=== PATIENT | male | born 1985 | race Caucasian/White ===

== ENCOUNTER 2019-08-11 15:43 | Emergency (ER) | payer OTHER ==
[2019-08-11] MEDS ORDERED: Sodium Chloride 0.9% 1,000 ML ONE ×2 (15:55→17:02)
[2019-08-11 16:08] LABS: #Basophils 0.2 thou/uL (0.0-0.2); #Lymphocytes 1.4 thou/uL (1.20-3.40); #Monocytes 1.3 thou/uL (0.11-0.59); #Neutrophils 10.3 thou/uL (1.40-6.50); %Basophils 1.2 % (0.0-1.0); %Eosinophils 0.1 % (0.0-10.0); %Lymphocytes 10.8 % (21.0-51.0); %Monocytes 9.8 % (0.0-10.0); %Neutrophils 78.2 % (42.0-75.0); Hemoglobin 18.5 g/dL (14.0-18.0); Mean Corpuscular HGB CONC 32.3 g/dL (32.0-36.0); Mean Corpuscular Hemoglobin 29.3 pg (27.0-31.0); Mean Corpuscular Volume 90.8 fL (78.0-98.0); Mean Platelet Volume 8.2 fL (7.4-10.4); Platelet Count 207 thou/uL (130-400); RBC Distribution Width 12.6 % (11.5-14.5); Red Blood Cell (RBC) Count 6.32 mill/uL (4.70-6.10); White Blood Cell (WBC) Count 13.1 thou/uL (4.8-10.8)
[2019-08-11 16:15] LABS: PTT 27.1 SEC (22.9-36.1)
[2019-08-11 16:26] LABS: ALT (SGPT) 98 U/L (8-55); AST (SGOT) 43 U/L (5-34); Acetaminophen Less than 6.0 mcg/mL (10.0-30.0); Albumin 5.3 g/dL (3.5-5.0); Alcohol Less than 10 mg/dL (Less than 10); Alkaline Phosphatase 75 U/L (40-110); Anion Gap 21 mmol/L (10-20); BUN (Urea Nitrogen) 18 mg/dL (8.9-20.6); Bilirubin, Total 1.9 mg/dL (0.2-1.2); CK (CPK) 920 U/L (30-200); Calc. Creatinine Clearance 0 mL/min (70-130); Calcium 10.3 mg/dL (7.8-10.44); Carbon Dioxide 23 mmol/L (22-29); Chloride 102 mmol/L (98-107); Estimated GFR-MDRD 61; Glucose 121 mg/dL (70-105); Potassium 4.1 mmol/L (3.5-5.1); Protein, Total 8.3 g/dL (6.0-8.3); Salicylate Less than 8.0 mg/dL (15.0-30.0); Sodium 142 mmol/L (136-145)
[2019-08-11 16:46] LABS: Bilirubin Small (Negative); Blood, Urine Moderate (Negative); Clarity Slightly Cloudy (Clear); Glucose, Urine (Dipstick) Negative (Negative); Leukocyte Negative (Negative); Nitrite Negative (Negative); Protein, Urine (Dipstick) > or equal to 300 mg/dL (Neg-Trace); Urobilinogen 0.2 mg/dL (Less than 2)
[2019-08-11 16:47] LABS: Amphetamine Not Detected (NotDetected); Barbiturates Screen Not Detected (NotDetected); Benzodiazepine Screen Not Detected (NotDetected); Cocaine Metabolite Screen Not Detected (NotDetected); Medtox Control Line Valid? VALID (VALID); Methadone Not Detected (NotDetected); Methamphetamine Not Detected (NotDetected); Opiate Screen Not Detected (NotDetected); Oxycodone Screen Not Detected (NotDetected); Phencyclidine (PCP) Not Detected (NotDetected); THC/Cannabinoid Screen Not Detected (NotDetected); Tricyclic Screen Not Detected (NotDetected)
--- NOTE | 2019-08-11 16:54 | CT ---
CT BRAIN WITHOUT CONTRAST ENHANCEMENT: HISTORY: Altered mental status. FINDINGS: The ventricular and cisternal system is within normal limits. Motion artifact is present. There are n o signs of intracerebral hemorrhage or extraaxial fluid collection. The mastoid air cells are clear. There is some mucosal change in the maxillary sinuses. IMPRESSION: No acute intracranial abnormalities. POS: [facility]
--- NOTE | 2019-08-11 16:55 | RAD ---
SUPINE CHEST: HISTORY: Altered mental status. FINDINGS: Heart size appears within normal limits considering the AP supine technique. Mediastinal structures a re unremarkable. The lungs are clear of infiltrates. IMPRESSION: No active intrathoracic disease. POS: [facility]
[2019-08-11 16:57] LABS: RBC/HPF 0-3 HPF (0-3); WBC/HPF 0-3 HPF (0-3)
[2019-08-11 16:58] LABS: Bacteria/HPF 1+ HPF (None Seen)
== END 2019-08-11 17:59 | disposition short-term general hospital (02) ==
LOC: MADERS 15:43
DX: M62.82 Rhabdomyolysis (principal); R41.82 Altered mental status, unspecified; I10 Essential (primary) hypertension
CPT/HCPCS: 51702; 70450; 71045; 80053; 80306; 80307; 81003; 81015; 82550; 83605; 83880; 84443; 84484; 85025; 85610; 85730; 93005; 94760; 96360; J7050

== ENCOUNTER 2019-08-31 08:49 | Emergency (ER) | payer SELFPAY ==
[2019-08-31] MEDS ORDERED: Sodium Chloride 0.9% 1,000 ML ONE (09:54)
[2019-08-31 09:55] LABS: #Basophils 0.1 thou/uL (0.0-0.2); #Lymphocytes 1.1 thou/uL (1.20-3.40); #Monocytes 0.5 thou/uL (0.11-0.59); #Neutrophils 5.4 thou/uL (1.40-6.50); %Eosinophils 0.7 % (0.0-10.0); %Monocytes 6.7 % (0.0-10.0); %Neutrophils 76.7 % (42.0-75.0); Hemoglobin 17.8 g/dL (14.0-18.0); Mean Corpuscular HGB CONC 31.8 g/dL (32.0-36.0); Mean Corpuscular Hemoglobin 29.4 pg (27.0-31.0); Mean Corpuscular Volume 92.6 fL (78.0-98.0); Mean Platelet Volume 7.1 fL (7.4-10.4); Platelet Count 242 thou/uL (130-400); RBC Distribution Width 11.9 % (11.5-14.5); Red Blood Cell (RBC) Count 6.04 mill/uL (4.70-6.10)
--- NOTE | 2019-08-31 10:05 | RAD ---
Portable frontal chest radiograph: 08/31/2019 COMPARISON: 08/11/2019 HISTORY: Chest pain FINDINGS: Lungs are clear. Heart and mediastinal contours appear within normal limits. Inspiration is shallow. IMPRESSION: No acute findings.
[2019-08-31 10:17] LABS: ALT (SGPT) 145 U/L (8-55); AST (SGOT) 48 U/L (5-34); Alcohol Less than 10 mg/dL (Less than 10); Alkaline Phosphatase 71 U/L (40-110); Anion Gap 20 mmol/L (10-20); BUN (Urea Nitrogen) 18 mg/dL (8.9-20.6); Bilirubin, Total 1.3 mg/dL (0.2-1.2); CK (CPK) 142 U/L (30-200); Calc. Creatinine Clearance 0 mL/min (70-130); Calcium 9.8 mg/dL (7.8-10.44); Carbon Dioxide 23 mmol/L (22-29); Chloride 102 mmol/L (98-107); Estimated GFR-MDRD 69; Globulin 2.9 g/dL (2.4-3.5); Glucose 103 mg/dL (70-105); Potassium 4.2 mmol/L (3.5-5.1); Protein, Total 7.9 g/dL (6.0-8.3); Sodium 141 mmol/L (136-145)
[2019-08-31 10:33] LABS: Bilirubin Negative (Negative); Blood, Urine Negative (Negative); Clarity Clear (Clear); Glucose, Urine (Dipstick) Negative (Negative); Leukocyte Negative (Negative); Nitrite Negative (Negative); Protein, Urine (Dipstick) Negative (Neg-Trace); Urobilinogen 0.2 mg/dL (Less than 2)
[2019-08-31 10:40] LABS: Tricyclic Screen Detected (NotDetected)
[2019-08-31 10:41] LABS: Amphetamine Not Detected (NotDetected); Barbiturates Screen Not Detected (NotDetected); Benzodiazepine Screen Not Detected (NotDetected); Cocaine Metabolite Screen Not Detected (NotDetected); Medtox Control Line Valid? VALID (VALID); Methadone Not Detected (NotDetected); Methamphetamine Not Detected (NotDetected); Opiate Screen Not Detected (NotDetected); Oxycodone Screen Not Detected (NotDetected); Phencyclidine (PCP) Not Detected (NotDetected); THC/Cannabinoid Screen Not Detected (NotDetected)
[2019-08-31] MEDS ORDERED: Magnesium 2 GM/50 ML BAG (IN WATER) ONE (11:03)
[2019-08-31] MEDS ORDERED: Metoprolol Tartrate 50 MG TAB ONE ×2 (11:03→18:31)
[2019-08-31] MEDS ORDERED: cloNIDine 0.1mg/24 Hour PATCH ONE ×2 (15:22→18:56)
[2019-08-31] MEDS ORDERED: cloNIDine 0.1 MG TAB ONE ×2 (15:23→18:56)
[2019-08-31] MEDS ORDERED: Amlodipine 5 MG TAB ONE (15:58)
[2019-08-31] MEDS ORDERED: Diazepam 5 MG TAB ONE (16:47)
== END 2019-08-31 20:40 | disposition short-term general hospital (02) ==
LOC: MADERS 08:49
DX: F29 Unspecified psychosis not due to a substance or known physiological condition (principal); F20.9 Schizophrenia, unspecified; I10 Essential (primary) hypertension; M62.82 Rhabdomyolysis; Z79.899 Other long term (current) drug therapy
CPT/HCPCS: 36415; 71045; 80053; 80306; 80307; 81003; 82550; 83880; 84443; 84484; 85025; 93005; 94760; J3475; J7050